=== PATIENT | female | born 1995 | race Caucasian/White ===

== ENCOUNTER 2018-08-14 18:20 | Emergency (ER) | payer MEDICAID ==
[2018-08-14 18:47] LABS: URINE BLOOD (Dip) POC Negative (NEGATIVE); URINE GLUCOSE (Dip) POC Negative (NEGATIVE); URINE KETONES (Dip) POC Negative (NEGATIVE); URINE LEUKOCYTE EST (Dip) POC Negative (NEGATIVE); URINE NITRITE (Dip) POC Negative (NEGATIVE); URINE TOTAL PROTEIN POC Negative (NEGATIVE)
[2018-08-14 18:47] LABS: URINE PH (Dip) POC 8.5 (5.0-8.5)
[2018-08-14] MEDS: ACETAMINOPHEN 500 MG TAB PO (18:48)
[2018-08-14] MEDS: ONDANSETRON (ODT) 4 MG TAB ODT (18:48)
== END 2018-08-14 19:17 | disposition home or self-care (01) ==
LOC: FTE 18:20
DX: R10.2 Pelvic and perineal pain (principal); F17.210 Nicotine dependence, cigarettes, uncomplicated; R31.9 Hematuria, unspecified
CPT/HCPCS: 81003; 81025; 99283

== ENCOUNTER 2018-08-20 22:41 | Emergency (ER) | payer SELFPAY, MEDICAID | END 2018-08-21 01:50 | disposition left against medical advice (07) | LOC: FTE 22:41 | DX: Z53.21 Procedure and treatment not carried out due to patient leaving prior to being seen by health care provider (principal) ==